=== PATIENT | male | born 1965 | race Caucasian/White ===

== ENCOUNTER → 2017-12-07 | Outpatient (CLI) | payer BC, MEDICAID | LOC: COL.RAD 11:05 | DX: K76.0 Fatty (change of) liver, not elsewhere classified (principal); R31.9 Hematuria, unspecified; Z90.49 Acquired absence of other specified parts of digestive tract ==

== ENCOUNTER → 2017-12-11 | Outpatient (CLI) | payer BC, MEDICAID | LOC: MHCPAIN 11:16 | DX: G89.29 Other chronic pain (principal); M79.2 Neuralgia and neuritis, unspecified; M79.1 Myalgia | CPT/HCPCS: G0463 ==

== ENCOUNTER → 2018-01-01 | Outpatient (CLI) | payer BC, MEDICAID | LOC: MHCPAIN 10:43 | DX: G89.29 Other chronic pain (principal); M79.2 Neuralgia and neuritis, unspecified | CPT/HCPCS: G0463 ==

== ENCOUNTER → 2018-03-12 | Outpatient (CLI) | payer BC, MEDICAID | LOC: MHCPAIN 11:46 | DX: G89.29 Other chronic pain (principal); M79.2 Neuralgia and neuritis, unspecified; M79.1 Myalgia | CPT/HCPCS: G0463 ==

== ENCOUNTER 2018-04-06 10:51 | Day surgery (SDC) | payer BC, MEDICAID ==
[2018-04-06] VITALS (7 sets, daily range): BP systolic 102–135; BP diastolic 53–77; PULSE 57–64; TEMP 98–98.2
[~2018-04-06] VITALS: Ht 185.4 cm; Wt 124.9 kg
[2018-04-06 12:02] LABS: BASO # 0.1 (0.0-0.2); BASO % 0.8 % (0.0-2.0); EOS # 0.2 (0.0-0.7); EOS % 1.8 % (0-4.0); GRAN # 5.5 (1.4-6.5); GRAN % 57.6 % (42.2-75.2); HEMATOCRIT 43.1 % (42.0-52.0); HEMOGLOBIN 14.9 g/dl (13.5-18.0); LYMPH % 31.2 % (20.0-51.0); MEAN CELL VOLUME 88 fl (80.0-100.0); MEAN CORPUSCULAR HEMOGLOBIN 30 pg (27.0-31.0); MEAN CORPUSCULAR HGB CONC 35 g/dl (33.0-37.0); MEAN PLATELET VOLUME 11.8 fl (7.4-10.4); MONO # 0.7 (0.1-0.6); MONO % 7.8 % (1.7-9.3); PLATELET COUNT 305 K/mm3 (130-400); RED BLOOD COUNT 4.91 M/mm3 (4.20-5.60); REDCELL DISTRIBUTION WIDTH-CV 12.8 % (11.5-14.5)
[2018-04-06] MEDS ORDERED: FORT1000TA PO (12:23)
[2018-04-06] MEDS ORDERED: PRINIVIL10 MG PO (12:24)
[2018-04-06] MEDS ORDERED: ACTOS30 MG PO (12:24)
[2018-04-06] MEDS ORDERED: LYRICA200 MG PO (12:24)
[2018-04-06] MEDS ORDERED: ULTRAM 50MG TAB50 MG PO (12:25)
== END 2018-04-06 16:15 | disposition home or self-care (01) ==
LOC: SDCO 10:51
PROVIDERS: Anesthesiology Pain Medicine
DX: G54.6 Phantom limb syndrome with pain (principal); E11.43 Type 2 diabetes mellitus with diabetic autonomic (poly)neuropathy; Z80.3 Family history of malignant neoplasm of breast; Z79.899 Other long term (current) drug therapy; Z79.84 Long term (current) use of oral hypoglycemic drugs; F17.210 Nicotine dependence, cigarettes, uncomplicated; I10 Essential (primary) hypertension; Z89.511 Acquired absence of right leg below knee
CPT/HCPCS: C1778; J0690; J1885; J1940; J2250; J2405; J2704; J3010; J7030

== ENCOUNTER → 2018-04-10 | Outpatient (CLI) | payer BC, MEDICAID ==
[~2018-04-10] MED LIST: ACTOS30 MG PO; FORT1000TA PO; LYRICA200 MG PO; PRINIVIL10 MG PO; ULTRAM 50MG TAB50 MG PO
== END ==
LOC: MHCPAIN 13:12
DX: G89.29 Other chronic pain (principal); G54.6 Phantom limb syndrome with pain; M79.604 Pain in right leg
CPT/HCPCS: G0463

== ENCOUNTER → 2018-04-13 | Outpatient (CLI) | payer BC, MEDICAID | LOC: MHCPAIN 09:44 | DX: G89.29 Other chronic pain (principal); M79.2 Neuralgia and neuritis, unspecified; M79.1 Myalgia | CPT/HCPCS: G0463 ==

== ENCOUNTER → 2018-07-10 | Outpatient (CLI) | payer MEDICAID | LOC: MHCPAIN 11:23 | DX: G89.29 Other chronic pain (principal); M79.1 Myalgia; M79.2 Neuralgia and neuritis, unspecified | CPT/HCPCS: G0463 ==

== ENCOUNTER → 2018-10-03 | Outpatient (CLI) | payer MEDICAID | LOC: MHCPAIN 10:30 | DX: G89.29 Other chronic pain (principal); M79.2 Neuralgia and neuritis, unspecified | CPT/HCPCS: G0463 ==

== ENCOUNTER 2021-07-21 13:45 | Outpatient (RCR) | payer MEDICAID | END 2021-10-12 | disposition home or self-care (01) | LOC: PT.GENESIS | DX: M25.561 Pain in right knee (principal) ==